=== PATIENT | male | born 1960 | race Caucasian/White ===

== ENCOUNTER 2020-12-18 10:44 | Inpatient (IN) | payer MEDICAID ==
[~2020-12-18] VITALS: Ht 182.9 cm; Wt 123.9 kg
[~2020-12-18 10:44] MED LIST: ACETAMINOPHEN 650MG/20.3ML UDC PO PRN
[2020-12-18] MEDS ORDERED: IBUPROFEN 400MG TABLET PO ONE (11:15)
[2020-12-18] MEDS ORDERED: HYDROCODONE/ACETAMINOPHEN 5/325MG TABLET PO ONE (11:30)
[2020-12-18] MEDS ORDERED: KETOROLAC 60MG/2ML VIAL IM ONE (11:30)
[2020-12-18] MEDS ORDERED: MORPHINE SULFATE 4 MG/ML CPJ (NOT FOR IM USE) IV ONE ×2 (11:45→14:00)
[2020-12-18] MEDS ORDERED: DIPHENHYDRAMINE 50MG/ML VIAL IM ONE ×2 (11:45→14:00)
[2020-12-18] MEDS ORDERED: ONDANSETRON HCL 4MG/2ML INJ IM ONE ×2 (11:45→14:00)
[2020-12-18] MEDS ORDERED: MORPHINE SULFATE 2 MG/ML CPJ (NOT FOR IM USE) IV NR ×2 (12:30→15:45)
[2020-12-18] MEDS ORDERED: ONDANSETRON HCL 4MG/2ML INJ IV STA (14:45)
[2020-12-18] MEDS ORDERED: DIPHENHYDRAMINE 50MG/ML VIAL IV ONE (14:45)
[2020-12-18] MEDS ORDERED: MORPHINE SULFATE 4 MG/ML CPJ (NOT FOR IM USE) IV STA (14:45)
[2020-12-18] MEDS ORDERED: SODIUM CHLORIDE 0.9% 1,000 ML IV ONE (14:45)
[2020-12-18 14:50] LABS: BASOPHILS % 0.4 % (0.0-2.0); HEMATOCRIT. 47.4 % (42.0-52.0); LYMPHOCYTES % 30.7 % (20.0-50.0); MEAN CORPUSCULAR HEMOGLOBIN 31.7 pg (28.0-32.0); MEAN CORPUSCULAR VOLUME 93.8 fL (80.0-94.0); MEAN PLATELET VOLUME 8.9 fl (7.4-10.4); NEUTROPHILS % 57.9 % (40.0-76.0); PLATELET 185 x1000/uL (130-400); RED BLOOD CELL COUNT 5.06 mill/uL (4.7-6.1); RED CELL DISTRIBUTION WIDTH 15.3 % (11.6-14.6)
[2020-12-18 14:56] LABS: CHLORIDE 114 mEq/L (98-107)
[2020-12-18 15:01] LABS: PARTIAL THROMBOPLASTIN TIME 27.6 sec (23.4-31.0); PROTHROMBIN TIME 10.9 sec (9.6-11.0)
[2020-12-18 22:30] VITALS: BP 123/48
[2020-12-18 22:37] VITALS: BP 118/80
[2020-12-18] MEDS ORDERED: TOPA200 PO (23:36)
[2020-12-18] MEDS ORDERED: LEVE1000 MT (23:37)
[2020-12-18] MEDS ORDERED: ZOLP10TA2 PO (23:38)
[2020-12-18] MEDS ORDERED: NALOXONE HCL 0.4MG/ML VIAL IV PRN (23:45)
[2020-12-19] VITALS: BP 117/76
[2020-12-19] MEDS: HYDROCODONE/ACETAMINOPHEN 10/325MG TABLET PO PRN ×3 (00:49→22:54)
[2020-12-19] MEDS ORDERED: MORPHINE SULFATE 2 MG/ML CPJ (NOT FOR IM USE) IV PRN (01:15)
[2020-12-19 08:00] VITALS: BP 124/76
[2020-12-19] MEDS ORDERED: TOPIRAMATE 100MG TABLET PO SCH ×2 (09:00→21:00)
[2020-12-19] MEDS: ENOXAPARIN 30MG/0.3ML SYR SUBCUT SCH ×3 (09:00→20:54)
[2020-12-19] MEDS: TOPIRAMATE 100MG TABLET PO SCH ×3 (09:00→21:00)
[2020-12-19] MEDS: LEVETIRACETAM 500MG TABLET PO SCH ×2 (09:09→20:54)
[2020-12-19 09:59] LABS: BASOPHILS % 0.6 % (0.0-2.0); EOSINOPHILS % 1.1 % (0.0-5.0); HEMATOCRIT. 45.8 % (42.0-52.0); HEMOGLOBIN. 15.4 g/dL (14.0-18.0); LYMPHOCYTES % 26.3 % (20.0-50.0); MEAN CORPUSCULAR HEMOGLOBIN 31.8 pg (28.0-32.0); MEAN CORPUSCULAR VOLUME 94.8 fL (80.0-94.0); MEAN PLATELET VOLUME 9.3 fl (7.4-10.4); MONOCYTES % 9.8 % (2.0-8.0); NEUTROPHILS % 62.2 % (40.0-76.0); PLATELET 173 x1000/uL (130-400); RED BLOOD CELL COUNT 4.83 mill/uL (4.7-6.1); RED CELL DISTRIBUTION WIDTH 15.3 % (11.6-14.6)
[2020-12-19 10:11] LABS: CHLORIDE 111 mEq/L (98-107)
[2020-12-19] MEDS ORDERED: LORAZEPAM 2MG/ML CPJ IV SCH (10:15)
[2020-12-19 12:00] VITALS: BP 107/74
[2020-12-19 16:00] VITALS: BP 115/79
[2020-12-19] MEDS: DIPHENHYDRAMINE 25MG CAPSULE PO PRN (16:51)
[2020-12-19 20:00] VITALS: BP 122/80
[2020-12-19] MEDS: ZOLPIDEM TARTRATE 5MG TABLET PO PRN (21:12)
[2020-12-20] MEDS: ZOLPIDEM TARTRATE 5MG TABLET PO PRN ×2 (00:17→23:06)
[2020-12-20] MEDS: DIPHENHYDRAMINE 25MG CAPSULE PO PRN ×3 (01:18→15:15)
[2020-12-20 08:00] VITALS: BP 104/75
[2020-12-20] MEDS: HYDROCODONE/ACETAMINOPHEN 10/325MG TABLET PO PRN ×3 (08:11→18:51)
[2020-12-20] MEDS: ENOXAPARIN 30MG/0.3ML SYR SUBCUT SCH (09:00)
[2020-12-20] MEDS: LEVETIRACETAM 500MG TABLET PO SCH ×2 (09:49→21:00)
[2020-12-20] MEDS: TOPIRAMATE 100MG TABLET PO SCH ×2 (09:49→21:00)
[2020-12-20] MEDS ORDERED: XAR15 MT (11:31)
[2020-12-20 12:00] VITALS: BP 116/72
[2020-12-20] MEDS: ENOXAPARIN 120MG/0.8ML SYR SUBCUT SCH ×2 (12:56→21:01)
[2020-12-20 16:00] VITALS: BP 110/72
[2020-12-20 20:00] VITALS: BP 124/86
[2020-12-20] MEDS ORDERED: TOPIRAMATE 100MG TABLET PO SCH (21:00)
[2020-12-21] VITALS: BP 102/64
[2020-12-21 04:00] VITALS: BP 109/74
[2020-12-21 08:00] VITALS: BP 115/77
[2020-12-21] MEDS: ENOXAPARIN 120MG/0.8ML SYR SUBCUT SCH ×2 (08:39→21:45)
[2020-12-21] MEDS: LEVETIRACETAM 500MG TABLET PO SCH ×2 (08:39→21:45)
[2020-12-21] MEDS: TOPIRAMATE 100MG TABLET PO SCH ×2 (08:39→21:45)
[2020-12-21 09:06] LABS: ABSOLUTE EOSINOPHILS 0.1 x10E3/uL (0.0-0.4); ABSOLUTE LYMPHOCYTES 2.4 x10E3/uL (0.7-3.1); ABSOLUTE MONOCYTES 0.7 x10E3/uL (0.1-0.9); ABSOLUTE NEUTROPHILS 3.3 x10E3/uL (1.4-7.0); BASOPHILS 1 % (Not Estab.); HEMATOCRIT 45.1 % (37.5-51.0); HEMOGLOBIN 14.9 g/dL (13.0-17.7); IMMATURE GRANULOCYTES 1 % (Not Estab.); LYMPHOCYTES 36 % (Not Estab.); MEAN CORPUSCULAR HEMOGLOBIN 31.4 pg (26.6-33.0); MEAN CORPUSCULAR VOLUME 95 fL (79-97); MONOCYTES 11 % (Not Estab.); NEUTROPHILS 49 % (Not Estab.); PLATELETS 171 x10E3/uL (150-450); RBC 4.74 x10E6/uL (4.14-5.80); RED CELL DISTRIBUTION WIDTH 13.9 % (11.6-15.4); WBC 6.5 x10E3/uL (3.4-10.8)
[2020-12-21] MEDS: HYDROCODONE/ACETAMINOPHEN 10/325MG TABLET PO PRN ×2 (09:08→14:37)
[2020-12-21 12:00] VITALS: BP 114/69
[2020-12-21] MEDS: GABAPENTIN 300MG CAPSULE PO SCH ×2 (14:36→21:45)
[2020-12-21 20:00] VITALS: BP 123/76
[2020-12-21] MEDS: ZOLPIDEM TARTRATE 5MG TABLET PO PRN (21:54)
[2020-12-22 04:00] VITALS: BP 111/72
[2020-12-22] MEDS: HYDROCODONE/ACETAMINOPHEN 10/325MG TABLET PO PRN ×2 (05:14→10:52)
[2020-12-22] MEDS: GABAPENTIN 300MG CAPSULE PO SCH ×3 (06:57→22:17)
[2020-12-22 08:00] VITALS: BP 102/69
[2020-12-22] MEDS: LEVETIRACETAM 500MG TABLET PO SCH ×2 (09:17→20:17)
[2020-12-22] MEDS: ENOXAPARIN 120MG/0.8ML SYR SUBCUT SCH ×2 (09:17→20:17)
[2020-12-22] MEDS: TOPIRAMATE 100MG TABLET PO SCH ×2 (09:17→22:18)
[2020-12-22 10:06] LABS: % CD 3 POS. LYMPHOCYTES 78.7 % (57.5-86.2); % CD 4 POS. LYMPHOCYTES 35.7 % (30.8-58.5); % CD 8 POS. LYMPH 43.7 % (12.0-35.5); ABSOLUTE CD 3 1889 /uL (622-2402); ABSOLUTE CD 4 HELPER 857 /uL (359-1519); ABSOLUTE CD 8 SUPPRESSOR 1049 /uL (109-897); CD4/CD8 RATIO 0.82 (0.92-3.72)
[2020-12-22 12:00] VITALS: BP 115/81
[2020-12-22] MEDS: METHOCARBAMOL 500MG TABLET PO PRN (13:47)
[2020-12-22 16:00] VITALS: BP 111/80
[2020-12-22] MEDS: OXYCODONE HCL/ACETAMINOPHEN 5/325MG TABLET PO PRN ×2 (18:17→22:19)
[2020-12-22 20:00] VITALS: BP 113/78
[2020-12-22] MEDS: DIPHENHYDRAMINE 25MG CAPSULE PO PRN (20:17)
[2020-12-23] VITALS: BP 103/71
[2020-12-23 04:00] VITALS: BP 108/68
[2020-12-23] MEDS: GABAPENTIN 300MG CAPSULE PO SCH ×3 (05:15→21:25)
[2020-12-23] MEDS: METHOCARBAMOL 500MG TABLET PO PRN ×2 (05:16→13:52)
[2020-12-23] MEDS: OXYCODONE HCL/ACETAMINOPHEN 5/325MG TABLET PO PRN ×4 (05:16→19:30)
[2020-12-23 08:00] VITALS: BP 109/77
[2020-12-23] MEDS: ENOXAPARIN 120MG/0.8ML SYR SUBCUT SCH ×2 (09:29→21:26)
[2020-12-23] MEDS: TOPIRAMATE 100MG TABLET PO SCH ×2 (09:29→21:24)
[2020-12-23] MEDS: LEVETIRACETAM 500MG TABLET PO SCH ×2 (09:29→21:25)
[2020-12-23] MEDS: DIPHENHYDRAMINE 25MG CAPSULE PO PRN ×2 (10:10→17:18)
[2020-12-23 12:00] VITALS: BP 108/66
[2020-12-23 16:00] VITALS: BP 110/73
[2020-12-23 20:00] VITALS: BP 115/70
[2020-12-24] VITALS: BP 111/75
[2020-12-24 04:00] VITALS: BP 109/71
[2020-12-24] MEDS: GABAPENTIN 300MG CAPSULE PO SCH ×3 (06:01→21:45)
[2020-12-24] MEDS: OXYCODONE HCL/ACETAMINOPHEN 5/325MG TABLET PO PRN ×3 (06:01→20:14)
[2020-12-24 08:00] VITALS: BP 99/66
[2020-12-24] MEDS: LEVETIRACETAM 500MG TABLET PO SCH ×2 (09:24→21:45)
[2020-12-24] MEDS: TOPIRAMATE 100MG TABLET PO SCH ×2 (09:24→21:45)
[2020-12-24] MEDS: ENOXAPARIN 120MG/0.8ML SYR SUBCUT SCH ×2 (09:24→21:45)
[2020-12-24 12:00] VITALS: BP 151/79
[2020-12-24 16:00] VITALS: BP 108/75
[2020-12-24 20:00] VITALS: BP 117/80
[2020-12-24] MEDS: DIPHENHYDRAMINE 25MG CAPSULE PO PRN (23:36)
[2020-12-24] MEDS: ZOLPIDEM TARTRATE 5MG TABLET PO PRN (23:45)
[2020-12-25] VITALS: BP 116/75
[2020-12-25 04:00] VITALS: BP 121/79
[2020-12-25] MEDS: GABAPENTIN 300MG CAPSULE PO SCH ×3 (06:38→21:44)
[2020-12-25 06:54] LABS: CHLORIDE 109 mEq/L (98-107)
[2020-12-25 06:55] LABS: PROTHROMBIN TIME 10.8 sec (9.6-11.0)
[2020-12-25 07:05] LABS: BASOPHILS % 0.4 % (0.0-2.0); EOSINOPHILS % 1.9 % (0.0-5.0); HEMATOCRIT. 41.8 % (42.0-52.0); HEMOGLOBIN. 14.1 g/dL (14.0-18.0); LYMPHOCYTES % 26.3 % (20.0-50.0); MEAN CORPUSCULAR HEMOGLOBIN 32.1 pg (28.0-32.0); MEAN CORPUSCULAR VOLUME 95.1 fL (80.0-94.0); MEAN PLATELET VOLUME 9.5 fl (7.4-10.4); MONOCYTES % 10.5 % (2.0-8.0); NEUTROPHILS % 60.9 % (40.0-76.0); PLATELET 158 x1000/uL (130-400); RED CELL DISTRIBUTION WIDTH 15.1 % (11.6-14.6)
[2020-12-25 08:00] VITALS: BP 113/74
[2020-12-25] MEDS: LEVETIRACETAM 500MG TABLET PO SCH ×2 (10:16→21:44)
[2020-12-25] MEDS: TOPIRAMATE 100MG TABLET PO SCH ×2 (10:16→21:44)
[2020-12-25] MEDS: OXYCODONE HCL/ACETAMINOPHEN 5/325MG TABLET PO PRN ×3 (10:17→20:19)
[2020-12-25] MEDS: ENOXAPARIN 120MG/0.8ML SYR SUBCUT SCH ×2 (10:17→21:44)
[2020-12-25 12:00] VITALS: BP 115/78
[2020-12-25] MEDS ORDERED: LEVE10006 PO (12:28)
[2020-12-25] MEDS ORDERED: ELVI1TAB2 PO (12:28)
[2020-12-25] MEDS ORDERED: NICO-645 TD (12:28)
[2020-12-25] MEDS ORDERED: TOPI100T37 PO (12:28)
[2020-12-25] MEDS ORDERED: MELA5TAB19 PO (12:28)
[2020-12-25] MEDS ORDERED: [UNRECOGNIZED DRUG - CODE] PO (12:28)
[2020-12-25 16:00] VITALS: BP 118/72
[2020-12-25] MEDS: BIKTARVY 50-200-25MG TABLET PO SCH (18:14)
[2020-12-25 20:00] VITALS: BP 114/75
[2020-12-25] MEDS: ZOLPIDEM TARTRATE 5MG TABLET PO PRN (23:07)
[2020-12-26] VITALS: BP 115/74
[2020-12-26] MEDS: GABAPENTIN 300MG CAPSULE PO SCH ×3 (06:41→21:16)
[2020-12-26 08:00] VITALS: BP 121/76
[2020-12-26] MEDS: ENOXAPARIN 120MG/0.8ML SYR SUBCUT SCH ×2 (09:02→20:49)
[2020-12-26] MEDS: TOPIRAMATE 100MG TABLET PO SCH ×2 (09:02→20:49)
[2020-12-26] MEDS: BIKTARVY 50-200-25MG TABLET PO SCH (09:02)
[2020-12-26] MEDS: LEVETIRACETAM 500MG TABLET PO SCH ×2 (09:02→20:49)
[2020-12-26] MEDS: OXYCODONE HCL/ACETAMINOPHEN 5/325MG TABLET PO PRN ×3 (09:08→20:51)
[2020-12-26 12:00] VITALS: BP 113/73
[2020-12-26 16:00] VITALS: BP 123/71
[2020-12-26 20:00] VITALS: BP 103/65
[2020-12-26] MEDS: ZOLPIDEM TARTRATE 5MG TABLET PO PRN (22:24)
[2020-12-27] VITALS: BP 114/71
[2020-12-27] MEDS: GABAPENTIN 300MG CAPSULE PO SCH ×3 (05:26→20:42)
[2020-12-27] MEDS: OXYCODONE HCL/ACETAMINOPHEN 5/325MG TABLET PO PRN ×3 (05:32→20:44)
[2020-12-27 08:00] VITALS: BP 104/62
[2020-12-27] MEDS: TOPIRAMATE 100MG TABLET PO SCH ×2 (09:08→20:42)
[2020-12-27] MEDS: LEVETIRACETAM 500MG TABLET PO SCH ×2 (09:08→20:42)
[2020-12-27] MEDS: BIKTARVY 50-200-25MG TABLET PO SCH (09:08)
[2020-12-27] MEDS: ENOXAPARIN 120MG/0.8ML SYR SUBCUT SCH ×2 (09:08→20:43)
[2020-12-27 12:00] VITALS: BP 111/76
[2020-12-27 16:00] VITALS: BP 109/63
[2020-12-27 20:00] VITALS: BP 111/76
[2020-12-28] VITALS: BP 114/75
[2020-12-28] MEDS: ZOLPIDEM TARTRATE 5MG TABLET PO PRN ×2 (00:04→23:53)
[2020-12-28] MEDS: OXYCODONE HCL/ACETAMINOPHEN 5/325MG TABLET PO PRN ×5 (01:13→20:28)
[2020-12-28 04:00] VITALS: BP 110/68
[2020-12-28] MEDS: GABAPENTIN 300MG CAPSULE PO SCH ×3 (06:14→21:06)
[2020-12-28 08:11] VITALS: BP 100/68
[2020-12-28] MEDS: LEVETIRACETAM 500MG TABLET PO SCH ×2 (09:08→20:27)
[2020-12-28] MEDS: ENOXAPARIN 120MG/0.8ML SYR SUBCUT SCH ×2 (09:09→21:06)
[2020-12-28] MEDS: TOPIRAMATE 100MG TABLET PO SCH ×2 (09:09→20:27)
[2020-12-28] MEDS: BIKTARVY 50-200-25MG TABLET PO SCH (09:09)
[2020-12-28] MEDS: METHOCARBAMOL 500MG TABLET PO PRN (09:10)
[2020-12-28 11:56] VITALS: BP 101/69
[2020-12-28 16:19] VITALS: BP 114/69
[2020-12-28 20:00] VITALS: BP 103/63
[2020-12-29] VITALS: BP 107/65
[2020-12-29 04:00] VITALS: BP 110/70
[2020-12-29] MEDS: GABAPENTIN 300MG CAPSULE PO SCH ×3 (05:04→21:27)
[2020-12-29] MEDS: OXYCODONE HCL/ACETAMINOPHEN 5/325MG TABLET PO PRN ×4 (05:04→21:28)
[2020-12-29 08:00] VITALS: BP 114/75
[2020-12-29] MEDS: TOPIRAMATE 100MG TABLET PO SCH ×2 (09:58→21:27)
[2020-12-29] MEDS: LEVETIRACETAM 500MG TABLET PO SCH ×2 (09:58→21:29)
[2020-12-29] MEDS: BIKTARVY 50-200-25MG TABLET PO SCH (09:59)
[2020-12-29] MEDS: ENOXAPARIN 120MG/0.8ML SYR SUBCUT SCH ×2 (09:59→21:29)
[2020-12-29 16:00] VITALS: BP 108/69
[2020-12-29 20:00] VITALS: BP 108/75
[2020-12-29] MEDS ORDERED: NALOXONE HCL 0.4MG/ML VIAL IV PRN (22:15)
[2020-12-30 00:04] VITALS: BP 97/61
[2020-12-30 04:00] VITALS: BP 103/65
[2020-12-30] MEDS: GABAPENTIN 300MG CAPSULE PO SCH ×3 (05:43→21:42)
[2020-12-30] MEDS: METHOCARBAMOL 500MG TABLET PO PRN (05:46)
[2020-12-30 06:59] LABS: BASOPHILS % 0.6 % (0.0-2.0); HEMATOCRIT. 41.6 % (42.0-52.0); MEAN CORPUSCULAR HEMOGLOBIN 31.8 pg (28.0-32.0); MEAN CORPUSCULAR VOLUME 94.6 fL (80.0-94.0); MEAN PLATELET VOLUME 9.5 fl (7.4-10.4); MONOCYTES % 11.3 % (2.0-8.0); NEUTROPHILS % 52.1 % (40.0-76.0); PLATELET 161 x1000/uL (130-400); RED CELL DISTRIBUTION WIDTH 15.3 % (11.6-14.6)
[2020-12-30 07:07] LABS: CHLORIDE 111 mEq/L (98-107)
[2020-12-30 08:14] VITALS: BP 112/76
[2020-12-30] MEDS: OXYCODONE HCL/ACETAMINOPHEN 5/325MG TABLET PO PRN (09:18)
[2020-12-30] MEDS: ENOXAPARIN 120MG/0.8ML SYR SUBCUT SCH ×2 (09:19→21:44)
[2020-12-30] MEDS: TOPIRAMATE 100MG TABLET PO SCH ×2 (09:20→21:41)
[2020-12-30] MEDS: BIKTARVY 50-200-25MG TABLET PO SCH (09:20)
[2020-12-30] MEDS: LEVETIRACETAM 500MG TABLET PO SCH ×2 (09:20→21:42)
[2020-12-30] MEDS ORDERED: OXYCODONE HCL/ACETAMINOPHEN 5/325MG TABLET PO PRN (09:30)
[2020-12-30 12:10] VITALS: BP 92/59
[2020-12-30 16:20] VITALS: BP 102/64
[2020-12-30] MEDS: IBUPROFEN 600MG TABLET PO PRN (18:54)
[2020-12-30 20:00] VITALS: BP 118/72
[2020-12-30] MEDS: ZOLPIDEM TARTRATE 5MG TABLET PO PRN (21:41)
[2020-12-31] VITALS: BP 115/72
[2020-12-31 04:00] VITALS: BP 101/60
[2020-12-31] MEDS: GABAPENTIN 300MG CAPSULE PO SCH ×3 (06:00→21:28)
[2020-12-31] MEDS: METHOCARBAMOL 500MG TABLET PO PRN (06:53)
[2020-12-31 08:00] VITALS: BP 111/76
[2020-12-31] MEDS: TOPIRAMATE 100MG TABLET PO SCH ×2 (09:34→21:28)
[2020-12-31] MEDS: LEVETIRACETAM 500MG TABLET PO SCH ×2 (09:35→21:28)
[2020-12-31] MEDS: BIKTARVY 50-200-25MG TABLET PO SCH (09:35)
[2020-12-31] MEDS: ENOXAPARIN 120MG/0.8ML SYR SUBCUT SCH ×2 (09:37→21:27)
[2020-12-31 12:00] VITALS: BP 115/77
[2020-12-31] MEDS: IBUPROFEN 600MG TABLET PO PRN (15:39)
[2020-12-31 20:00] VITALS: BP 107/68
[2020-12-31] MEDS: ZOLPIDEM TARTRATE 5MG TABLET PO PRN (21:39)
[2021-01-01] VITALS: BP 102/60
[2021-01-01 04:00] VITALS: BP 106/53
[2021-01-01] MEDS: GABAPENTIN 300MG CAPSULE PO SCH (05:41)
[2021-01-01 08:00] VITALS: BP 109/68
[2021-01-01] MEDS: TOPIRAMATE 100MG TABLET PO SCH (09:21)
[2021-01-01] MEDS: LEVETIRACETAM 500MG TABLET PO SCH (09:21)
[2021-01-01] MEDS: BIKTARVY 50-200-25MG TABLET PO SCH (09:22)
[2021-01-01] MEDS: ENOXAPARIN 120MG/0.8ML SYR SUBCUT SCH (09:27)
== END 2021-01-01 11:35 | disposition home or self-care (01) | DRG 347 ==
LOC: ER 11:01 → 6EST 16:26 → EDBEDREQ 16:28 → EDBEDREQTM 16:28 → ENRESERV 20:43
PROVIDERS: ADMIT Internal Medicine; ATTEND Internal Medicine
DX: M48.061 Spinal stenosis, lumbar region without neurogenic claudication (principal); E44.1 Mild protein-calorie malnutrition; I82.411 Acute embolism and thrombosis of right femoral vein; E87.8 Other disorders of electrolyte and fluid balance, not elsewhere classified; M48.02 Spinal stenosis, cervical region; M51.16 Intervertebral disc disorders with radiculopathy, lumbar region; M48.07 Spinal stenosis, lumbosacral region; M47.26 Other spondylosis with radiculopathy, lumbar region; M51.17 Intervertebral disc disorders with radiculopathy, lumbosacral region; G40.909 Epilepsy, unspecified, not intractable, without status epilepticus; Z20.822 Contact with and (suspected) exposure to COVID-19; F15.10 Other stimulant abuse, uncomplicated; E66.01 Morbid (severe) obesity due to excess calories; Z68.37 Body mass index [BMI] 37.0-37.9, adult; Z88.8 Allergy status to other drugs, medicaments and biological substances; Z87.891 Personal history of nicotine dependence; Z76.5 Malingerer [conscious simulation]
CPT/HCPCS: 36415; 71045; 72100; 72141; 72146; 72148; 72192; 73502; 73700; 80048; 80053; 83036; 85025; 86359; 86360; 86850; 86900; 87426; 93005; 93970; 97116; 97162; 97166; 99285; A6261; J1200; J1650; J1885; J2060; J2270; J2405; J7030; Q0163